=== PATIENT | female | born 1995 | race Two or more races ===

== ENCOUNTER 2024-11-03 17:19 | Emergency (ER) | payer OTHER ==
[~2024-11-03] VITALS: Ht 152.4 cm; Wt 65.8 kg
[2024-11-03] MEDS ORDERED: NORGESTIMATE-E1 EAC1 PO (18:11)
[2024-11-03] MEDS ORDERED: KETOROLAC TROMETHAMINE 30 MG VIAL IM ONE (18:45)
[2024-11-03] MEDS ORDERED: DICLOFENAC SODI50 MG PO (20:10)
== END 2024-11-03 20:36 ==
LOC: ER 17:19
DX: S90.31XA Contusion of right foot, initial encounter (principal); W51.XXXA Accidental striking against or bumped into by another person, initial encounter; Y93.89 Activity, other specified; Y92.89 Other specified places as the place of occurrence of the external cause; Z88.8 Allergy status to other drugs, medicaments and biological substances